=== PATIENT | female | born 1980 | race Caucasian/White ===

== ENCOUNTER 2016-05-23 17:49 | Inpatient (IN) ==
[2016-05-23] MEDS ORDERED: METOCLOPRAMIDE 10 MG/2 ML VIAL IV STA (18:59)
[2016-05-23] MEDS ORDERED: ONDANSETRON 4 MG/2 ML VIAL IV STA (18:59)
[2016-05-23] MEDS ORDERED: PANTOPRAZOLE 40 MG VIAL IV STA (18:59)
[2016-05-23] MEDS ORDERED: SODIUM CHLORIDE 0.9% 1,000 ML IV STA (18:59)
--- NOTE | 2016-05-23 19:05 | Emergency Department Note ---
Arrival - Arrival Chief Complaint: GI Bleed/Rectal Stated Complaint: NAUSEA/RECTAL BLEEDING/LOW GRADE FEVER ED Nursing Triage Note: C/O LOWER GI BLEED WITH ONSET THIS MORNING. + FEVER. PT STATES SHE HAS HAD 3 BM WITH BLOOD. Mode of Arrival: Ambulatory Limitations: No Limitations Source: Patient Time Seen by Provider: 05/23/16 18:59 - History of Present Illness HPI Narrative: This 35-year-old white female presents with 3 bouts of painless passage of red blood with clots. The patient denies any melena, vomiting, history of inflammatory bowel disease, reflux, peptic ulcer disease, or hemorrhoids. Patient does have a history of gastritis on endoscopy over a year ago and does complain of nausea in association with this. She has experienced no significant complaints the last several days leading up to the bouts experienced on this day. Currently she appears in no acute distress. Onset (ago): hour(s) (onset of symptoms 12 hours ago) Consistency: constant Severity: moderate Allergies/Adverse Reactions: Allergies Allergy/AdvReac Type Severity Reaction Status Date / Time levofloxacin [From Levaquin] Allergy RASH Verified 02/20/16 21:08 Home Medications: Home Medications Medication Instructions Recorded Confirmed Type No Known Home Medications [No 05/23/16 05/23/16 History Known Home Medications] Review of System - Review of System 12 point system: reviewed and no additional remarkable complaints except as stated - Review of System Constitutional: Present: as per HPI Gastrointestinal: Present: as per HPI Medical,Surgical,& Family Hx - Medical History Psychological: History of: Depression, Psychiatric Problems (ptsd) - Surgical History Abdominal Surgeries: Surgical HX of: Cholecystectomy Reproductive Surgeries: Surgical HX of;: Section (x2), Dilation and Curettage, Hysterectomy - Family History Family History: Reports;: Family Cancer, Family Diabetes, Family Hypertension - Social History Smoking Status: Never smoker Frequency of Alcohol Use: None Type of Drug Use: None Exam Physical Examination: GENERAL: Well developed, well nourished white female in no acute distress. HEENT: Normocephalic. No trauma. Moist mucous membranes. EOMI. PERRLA. NECK: Supple. No adenopathy. CARDIAC: Regular. No murmurs. Heart rate 83 CHEST: Clear to auscultation. No respiratory distress. O2 sat 100% ABDOMEN: Soft. Mild midepigastric tenderness. Active bowel sounds. EXTREMITIES: No trauma. Normal ROM. No pedal edema. SKIN: No diaphoresis. No rash. NEURO: Alert. Neurologic intact. No focal deficits. Vital Signs: Vital Signs Temperature 98.6 F 05/23/16 18:12 Pulse Rate 63 05/23/16 18:12 Respiratory Rate 18 05/23/16 18:12 Blood Pressure 131/91 05/23/16 18:12 O2 Sat by Pulse Oximetry 100 05/23/16 18:12 Course - Reevaluation(s) Reevaluation #1: Discussed with patient the need for hospitalization overnight with probability of endoscopy in the morning. - Consultations Consultation #1: Discussed with hospitalist service who will admit for further evaluation and treatment Results - Labs CBC & BMP: 05/23/16 18:20 05/23/16 18:20 Labs: I've noted the totally normal laboratory Disposition Clinical Impression: lower GI bleed Case discussed with: patient, patient's family Disposition: Still a Patient Condition: Stable Time of Disposition: 20:31
[2016-05-23 19:07] LABS: Basophils # 0.1 10*3/uL (0.0-0.2); Basophils % 0.9 % (0.0-0.8); Eosinophils # 0.3 10*3/uL (0.0-0.87); Eosinophils % 3.1 % (0.00-10.9); Hematocrit 46.4 VOL% (35.7-47.0); Hemoglobin 15.6 GM/DL (12.0-16.0); Immature Granulocytes % 0.4 %; Immature Granulocytes Absolute 0.04 #; Lymphocytes % 38.7 % (21.3-54.2); Mean Corpuscular HGB Conc 33.6 GM/DL (32-36); Mean Corpuscular Hemoglobin 29 PG (27-34); Mean Corpuscular Volume 87.1 FL (87-102); Mean Platelet Volume 10.6 FL (9.6-12.0); Monocytes # 0.6 10*3/uL (0.11-0.8); Monocytes % 5.7 % (1.7-12.7); Neutrophils # 5.3 10*3/uL (1.4-7.4); Neutrophils % 51.2 % (38.7-73.9); Platelet Count 243 10*3/uL (130-400); Red Blood Count 5.33 10*6/uL (3.8-5.5); Red Cell Distribution Width 12.6 % (9.3-17.3); White Blood Count 10.2 10*3/uL (4.5-13.71)
[2016-05-23 19:15] LABS: PT Patient Result 10.6 SECS; Partial Thromboplastin Time 28.9 SECS (0-40)
[2016-05-23] MEDS ORDERED: PANTOPRAZOLE 40 MG VIAL IV ONE (19:22)
[2016-05-23] MEDS ORDERED: ONDANSETRON 4 MG/2 ML VIAL ONE (19:23)
[2016-05-23] MEDS ORDERED: METOCLOPRAMIDE 10 MG/2 ML VIAL ONE (19:23)
[2016-05-23 19:34] LABS: Alanine Aminotransferase 45 U/L (13-56); Alkaline Phosphatase 111 U/L (45-117); Aspartate Amino Transferase 24 U/L (0-37); Blood Urea Nitrogen 13 MG/DL (7-18); Calcium 9.6 MG/DL (8.5-10.1); Glucose 76 MG/DL (74-106); Potassium 3.6 MMOL/L (3.5-5.1); Sodium 143 MMOL/L (136-145); Total Protein 7.5 G/DL (6.4-8.3); Troponin I Only < 0.015 NG/ML (0.00-0.045)
--- NOTE | 2016-05-23 20:54 | Hospitalist History & Physical ---
Assessment and Plan - Time spent with patient Time spent with patient: Greater than 30 minutes (1) Lower GI bleed Status: Acute Assessment and plan: We'll admit the patient to inpatient. Place her on nothing by mouth. Consult gastroenterology. Place the patient on PPI. Current Visit: Yes History of Present Illness Chief complaint: bright red blood per rectum History of present illness: Ms. Loyd is a 35 year old female who presents with complaints of bloody stool. She states she awakened at 545 am, which is normal for her and had a bowel movement. She noticed upon standing that the toilet was full of bright red blood. She endorses lower abdominal cramping. She had two more bowel movements thereafter each bloody and decided to present to the ER for evaluation. She endorses a temperature of 100F. She endorses nausea, no vomiting. Denies chest pain or SOB. Denies weight loss. Home Medications Medication Instructions Recorded Confirmed Type No Known Home Medications [No 05/23/16 05/23/16 History Known Home Medications] Allergies Allergy/AdvReac Type Severity Reaction Status Date / Time levofloxacin [From Levaquin] Allergy RASH Verified 02/20/16 21:08 Medical,Surgical,& Family Hx - Medical History Psychological: History of: Depression, Psychiatric Problems (ptsd) - Surgical History Abdominal Surgeries: Surgical HX of: Cholecystectomy Reproductive Surgeries: Surgical HX of;: Section (x2), Dilation and Curettage, Hysterectomy - Family History Family History: Reports;: Family Cancer, Family Diabetes, Family Hypertension - Social History Smoking Status: Never smoker Frequency of Alcohol Use: None Type of Drug Use: None 12 point system: reviewed and no additional remarkable complaints except as stated Exam - Constitutional Vitals: Period Temp Pulse Resp BP Sys/Anton Pulse Ox Last 24 Hr 98.6 F 63 18 131/91 100 General appearance: no acute distress - Head Head exam: Present: normocephalic, atraumatic - Eye Eye exam: Present: EOMI Pupils: Present: CLAIRE - ENT ENT exam: Present: normal exam - Neck Neck exam: Present: normal inspection - Respiratory Respiratory exam: Present: clear to auscultation bilaterally. Absent: rhonchi, wheezes - Cardiovascular Cardiovascular exam: Present: regular rate and rhythm. Absent: gallop, rubs, systolic murmur - GI/Abdominal GI/Abdominal exam: Present: normal bowel sounds, tenderness (lower left and right), soft. Absent: distended, firm, guarding, rebound - Extremities Exam Extremities exam: Present: normal inspection. Absent: calf tenderness, edema Results - Labs CBC & BMP: 05/23/16 18:20 05/23/16 18:20 Lab Results: I have reviewed the past 24 hour labs
--- NOTE | 2016-05-23 20:55 | EKG Report ---
Stationary ECG Study [facility] ER Test Date: 05/23/2016 8:54:20 PM Pat Name: JULY EDUARDO Department: Room: 516 Gender: F Marketing Designer: : 1980 Requested by: Reyes Molina Order Number: [id number] Reading MD: ELO ZUNIGA Intervals [place] Rate: 45 P: 46 SC: 179 QRS: 70 QRSD: 77 T: 13 QT: 418 QTc: 374 Interpretive Statements SINUS BRADYCARDIA NONSPECIFIC T-WAVE ABNORMALITY Electronically Signed On 05-24-16 12:33:53 SURGICAL TRAINING SPECIALIST by ELO ZUNIGA [email or web address]
[2016-05-23] MEDS: PANTOPRAZOLE 40 MG VIAL IV SCH (22:49)
[2016-05-24 06:30] LABS: Basophils # 0.1 10*3/uL (0.0-0.2); Basophils % 1.1 % (0.0-0.8); Eosinophils # 0.2 10*3/uL (0.0-0.87); Eosinophils % 2.9 % (0.00-10.9); Hematocrit 43.9 VOL% (35.7-47.0); Hemoglobin 14.5 GM/DL (12.0-16.0); Immature Granulocytes % 0.2 %; Immature Granulocytes Absolute 0.02 #; Lymphocytes # 3.7 10*3/uL (1.4-4.0); Lymphocytes % 45.6 % (21.3-54.2); Mean Corpuscular Hemoglobin 29 PG (27-34); Mean Corpuscular Volume 88.3 FL (87-102); Monocytes # 0.5 10*3/uL (0.11-0.8); Monocytes % 6.4 % (1.7-12.7); Neutrophils # 3.6 10*3/uL (1.4-7.4); Neutrophils % 43.8 % (38.7-73.9); Platelet Count 222 10*3/uL (130-400); Red Blood Count 4.97 10*6/uL (3.8-5.5); Red Cell Distribution Width 12.6 % (9.3-17.3); White Blood Count 8.1 10*3/uL (4.5-13.71)
[2016-05-24 06:53] LABS: Calcium 9.1 MG/DL (8.5-10.1); Osmolality,Calculated 287.6 MOS/KG (273-304); Potassium 4.5 MMOL/L (3.5-5.1)
--- NOTE | 2016-05-24 08:40 | Gastrointestinal Consult Note ---
Assessment and Plan (1) Lower GI bleed Status: Acute Assessment and plan: 05/24-Sudden onset of bright red rectal bleeding w/o stool x 3 episodes. Lower abd cramping. Low grade fever prior to admission. Recent endoscopy at [facility]. Obtain records from [facility]. Clear liquid diet. Continue to monitor HH. Plan and addendum to follow by DR Rios. Current Visit: Yes History of Present Illness Chief complaint: Lower GI bleed History of present illness: Ms. Loyd is a 35 year old female who presented to the ER following onset of lower GI bleeding. Pt states that she was in her usual state of health until yesterday morning when she was awaken about 5:45 with the urge to have a bowel movement. She went to the bathroom however she did not have a bowel movement but had some bright red rectal bleeding. She states she had some lower abdominal cramping prior to this but it would come and go, being sharp and severe at times. She had two more urgencies to have a bowel movement however only had bleeding with this with no stool. The pain continued off and on as well. She has not had any further bleeding since yesterday afternoon however she states getting out of the shower this morning she noticed bright red blood on the towel from her rectum. She does report a low grade temp of 100 prior to coming in. Denies any nausea or vomiting. Denies any clots. Denies any unwarranted weight loss. Denies any problems with her bowels or constipation issues. States that she did have an upper and lower endoscopy a year ago with Dr Chong however found out after it was her gallbladder which she had removed then. She states the only colon finding was a polyp. Mother is at bedside and reports she has IBS and her mother had colon cancer. Pt denies any NSAID use. States the week prior to this she just felt very fatigued and had some waves of nausea however was able to continue her usual activities. Hemoglobin is stable at 14. Other labs unremarkable at present time. Home Medications Medication Instructions Recorded Confirmed Type No Known Home Medications [No 05/23/16 05/23/16 History Known Home Medications] Allergies Allergy/AdvReac Type Severity Reaction Status Date / Time levofloxacin [From Levaquin] Allergy RASH Verified 02/20/16 21:08 Medical,Surgical,& Family Hx - Medical History Psychological: History of: Depression, Psychiatric Problems (ptsd) Gastrointestinal: History of: Polyps, GI Problems (gastritis) - Surgical History Abdominal Surgeries: Surgical HX of: Cholecystectomy Reproductive Surgeries: Surgical HX of;: Section (x2), Dilation and Curettage, Hysterectomy - Family History Family History: Reports;: Family Cancer, Family Diabetes, Family Hypertension - Social History Smoking Status: Never smoker Frequency of Alcohol Use: None Type of Drug Use: None 12 point system: reviewed and no additional remarkable complaints except as stated - Constitutional Constitutional: Present: as per HPI, fever(s) - EENT Eyes: Present: as per HPI Ears: Present: as per HPI Nose, mouth and throat: Present: as per HPI - Cardiovascular Cardiovascular: Present: as per HPI - Respiratory Respiratory: Present: as per HPI - Gastrointestinal Gastrointestinal: Present: as per HPI, abdominal pain, cramping, hematochezia - Genitourinary Genitourinary: Present: as per HPI - Musculoskeletal Musculoskeletal: Present: as per HPI - Neurological Neurological: Present: as per HPI - Psychiatric Psychiatric: Present: as per HPI - Endocrine Endocrine: Present: as per HPI - Hematologic/Lymphatic Hematologic/Lymphatic: Present: as per HPI Exam - Constitutional Vitals: Period Temp Pulse Resp BP Sys/Anton Pulse Ox Last 24 Hr 96.6 F-98.9 F 50-92 16-22 96-148/64-90 97-98 General appearance: normal weight, no acute distress - Head Head exam: Present: normal inspection, normocephalic - Eye Eye exam: Present: other (lids and conjunctiva unremarkable). Absent: scleral icterus - ENT ENT exam: Present: normal exam, normal oropharynx - Neck Neck exam: Present: normal inspection - Respiratory Respiratory exam: Present: clear to auscultation bilaterally. Absent: rales, rhonchi, wheezes - Cardiovascular Cardiovascular exam: Present: regular rate and rhythm. Absent: diastolic murmur , JVD, systolic murmur - GI/Abdominal GI/Abdominal exam: Present: normal bowel sounds, tenderness, soft. Absent: ascites, distended, mass, organomegaly - Extremities Exam Extremities exam: Present: normal inspection, full ROM - Back Exam Back exam: Present: normal inspection - Neurological Exam Neurological exam: Present: alert, oriented X3 - Psychiatric Psychiatric exam: Present: normal affect, normal mood - Skin Skin exam: Present: normal color, warm, dry Results - Labs CBC & BMP: 05/24/16 04:45 05/24/16 04:45 Lab Results: I have reviewed the past 24 hour labs Quality Measures - Stroke Symptom Onset Unknown: No
[2016-05-24] MEDS: PANTOPRAZOLE 40 MG VIAL IV SCH ×2 (09:57→20:11)
[2016-05-24] MEDS ORDERED: ONDANSETRON 4 MG/2 ML VIAL IV PRN ×2 (09:58→10:11)
[2016-05-24] MEDS ORDERED: ONDANSETRON 4 MG/2 ML VIAL ONE (09:59)
[2016-05-24] MEDS ORDERED: hydrOXYzine HCL 25 MG TABLET PO PRN (11:08)
[2016-05-24] MEDS ORDERED: PROMETHAZINE 25 MG/1 ML VIAL IM PRN (12:57)
--- NOTE | 2016-05-24 15:16 | Hospitalist Progress Note ---
Assessment and Plan (1) Lower GI bleed Status: Acute Assessment and plan: monitor hgb, may be ischemic colitis, colonoscopy one year ago found polyp Current Visit: Yes Hospitalist: Subjective Interval history: Dr. Rios feels that she may have an ischemic colitis but would not do antibiotics at this time. Her bleeding has stopped she still feels like she has itching and we will give her Atarax for itching Exam - Constitutional Vitals: Period Temp Pulse Resp BP Sys/Anton Pulse Ox Last 24 Hr 96.6 F-98.9 F 46-92 16-22 96-148/64-90 97-98 Exam: Heart Rate-regular rate and rhythm Lungs-[CTAB] GI-[+bs soft, NT] Ext-[no edema] neuro motor 5 out of 5, alert and oriented 3 Psych normal mood and affect General no acute distress Results - Labs CBC & BMP: 05/24/16 04:45 05/24/16 04:45 Lab Results: I have reviewed the past 24 hour labs Quality Measures - Stroke Symptom Onset Unknown: No
[2016-05-24] MEDS: SODIUM CHLORIDE 0.45% 1,000 ML IV SCH (16:13)
[2016-05-24] MEDS: ONDANSETRON 4 MG/2 ML VIAL IV PRN (16:39)
[2016-05-25] MEDS: SODIUM CHLORIDE 0.45% 1,000 ML IV SCH ×2 (01:10→07:41)
--- NOTE | 2016-05-25 08:32 | Gastrointestinal Progress Note ---
Assessment and Plan (1) Lower GI bleed Status: Acute Assessment and plan: 05/25-Small amt of rectal oozing last night. Hgb stable at 14. [facility] records review. Plan and addendum to follow by Dr Rios. 05/24-Sudden onset of bright red rectal bleeding w/o stool x 3 episodes. Lower abd cramping. Low grade fever prior to admission. Recent endoscopy at [facility]. Obtain records from [facility]. Clear liquid diet. Continue to monitor HH. Plan and addendum to follow by DR Rios. Current Visit: Yes Gastroenterology - PN: Subj Interval history: CC: Rectal bleed Pt is seen awake and alert, family at side. States she rested well overnight. She is complaining of some abdominal cramping this morning more than on yesterday. She had one small episode of rectal oozing bright red blood last night however has not had a bowel movement in a couple of days. Hgb is stable at 14. Records from [facility] indicate EGD with gastritis and negative H. pylori and C-scope with random biopsies taken with negative path reports, which were both done in February. She had some bleeding from the rectum at that time but the c- scope report does not indicate a source. Abdomen is soft, nontender to palpation. ROS: Denies SOB or chest pain Exam (Progress Note) - Constitutional Vitals: Period Temp Pulse Resp BP Sys/Anton Pulse Ox Last 24 Hr 96.6 F-98.3 F 46-62 16-18 92-112/52-67 96-100 - Other Additional findings: General appearance: normal weight, no acute distress - Head Head exam: Present: normal inspection, normocephalic - Eye Eye exam: Present: other (lids and conjunctiva unremarkable). Absent: scleral icterus - ENT ENT exam: Present: normal exam, normal oropharynx - Neck Neck exam: Present: normal inspection - Respiratory Respiratory exam: Present: clear to auscultation bilaterally. Absent: rales, rhonchi, wheezes - Cardiovascular Cardiovascular exam: Present: regular rate and rhythm. Absent: diastolic murmur , JVD, systolic murmur - GI/Abdominal GI/Abdominal exam: Present: normal bowel sounds, tenderness, soft. Absent: ascites, distended, mass, organomegaly - Extremities Exam Extremities exam: Present: normal inspection, full ROM - Back Exam Back exam: Present: normal inspection - Neurological Exam Neurological exam: Present: alert, oriented X3 - Psychiatric Psychiatric exam: Present: normal affect, normal mood - Skin Skin exam: Present: normal color, warm, dry Results - Labs CBC & BMP: 05/25/16 05:10 05/24/16 04:45 Lab Results: I have reviewed the past 24 hour labs
[2016-05-25] MEDS: PANTOPRAZOLE 40 MG VIAL IV SCH (09:02)
--- NOTE | 2016-05-25 10:53 | Discharge Summary ---
<Hayde Raines - Last Filed: 05/25/16 10:47> Hospital Course - Hospital Course Hospital Course: Ms Loyd was admitted on 05/23/16 with acute Lower GI Bleed. GI was consulted and she was placed on PPI. She was awakened the morning of discharge, and had a large amount of bright red blood. Lower abdominal cramping. Dr. Rios saw in GI consultation for her lower GI bleed and opted to treat symptomatically given that she had recently had a C scope about 3-4 months ago showing a small polyp. H/H's remained stable throughout her hospitalization. Ms. Loyd has improved, and she will be discharged home today on appropriate medications and follow up. - Time spent with patient Time with patient DS: Greater than 30 minutes (due to plan, doc and med rec.) Diagnosis - Discharge Diagnosis (1) Lower GI bleed Status: Acute Discharge Plan - Discharge Data Disposition: Disch To Home/Self Care - Discharge Medications New Promethazine Tab [Phenergan Tab] 25 mg PO Q4H #30 tablet HYDROcodone/ACETAMIN 5-325 [[place] 5-325] 1 tablet PO Q4H PRN #30 tablet PRN Reason: Pain Moderate (4-7) Pantoprazole Tab [Protonix Tab] 40 mg PO DAILY #30 tablet - Follow Up or Referral Follow Up: Chaparro Rios MD [Physician] - 1 Month (or GI doctor of choice ) - Forms/Instructions Exam - Constitutional Vitals: Period Temp Pulse Resp BP Sys/Anton Pulse Ox Last 24 Hr 96.6 F-98.3 F 46-62 16-18 92-112/52-67 96-100 Discharge Results Labs on day of discharge: Labs from last 24 hours 05/25/16 05:10 Hgb 14.3 DS: Provider Date of admission: 05/23/16 20:49 Primary care physician: . No PCP Attending physician on admission: Sravani Sarabia MD Discharging clinician: Hayde Raines NP Expected date of discharge: 05/25/16 <Dawn Rivero - Last Filed: 05/25/16 11:16> Hospital Course - Hospital Course Hospital Course: Patient seen and examined. Hospital course reviewed and edited. Spoke with Dr. Rios and he believes that she has a mild case of ischemic colitis. No antibiotics are needed at this time. Patient has mild cramping but is able to tolerate a soft diet. We will discharge her on nausea and pain medicines to follow-up with GI of her choice. Diagnosis - Discharge Diagnosis (1) Lower GI bleed Status: Acute Discharge Plan - Discharge Data Condition at Discharge: Stable Discharge Diet: other (soft ) Activity: resume usual activities as tolerated Hygiene: no restrictions Exam - Constitutional Exam: Heart Rate-[RRR] Lungs-[CTAB] GI-[+bs soft, NT] Ext-[no edema]
[2016-05-25] MEDS: ONDANSETRON 4 MG/2 ML VIAL IV PRN (12:30)
[2016-05-25 13:37] VITALS: BP 107/75
== END 2016-05-25 15:00 | disposition home or self-care (01) | DRG 395 ==
LOC: N.ED 17:49 → N.EDINP 20:44 → N.5E 21:49
PROVIDERS: ADMIT Internal Medicine; ATTEND Internal Medicine

== ENCOUNTER 2017-07-29 18:52 | Inpatient (IN) ==
[2017-07-29] MEDS ORDERED: metroNIDAZOLE INJ 500 MG in PREMIX 1 EACH IV STA (20:31)
[2017-07-29] MEDS ORDERED: ONDANSETRON 4 MG/2 ML VIAL IV STA (20:31)
[2017-07-29] MEDS ORDERED: SODIUM CHLORIDE 0.9% 500 ML IV STA (20:31)
[2017-07-29] MEDS ORDERED: PANTOPRAZOLE 40 MG VIAL IV STA (20:31)
[2017-07-29] MEDS ORDERED: METOCLOPRAMIDE 10 MG/2 ML VIAL IV STA (20:31)
[2017-07-29] MEDS ORDERED: ONDANSETRON 4 MG/2 ML VIAL ONE (20:49)
[2017-07-29] MEDS ORDERED: METOCLOPRAMIDE 10 MG/2 ML VIAL ONE (20:49)
[2017-07-29] MEDS ORDERED: metroNIDAZOLE 500 MG/100 ML PREMIX IV ONE (20:49)
[2017-07-29] MEDS ORDERED: PANTOPRAZOLE 40 MG VIAL IV ONE (20:49)
[2017-07-29 20:55] LABS: Basophils # 0.1 10*3/uL (0.0-0.2); Basophils % 0.6 % (0.0-0.8); Eosinophils # 0.3 10*3/uL (0.0-0.87); Eosinophils % 2.2 % (0.00-10.9); Hematocrit 48.5 VOL% (35.7-47.0); Hemoglobin 16.5 GM/DL (12.0-16.0); Immature Granulocytes % 0.3 %; Immature Granulocytes Absolute 0.04 #; Lymphocytes # 2.6 10*3/uL (1.4-4.0); Lymphocytes % 20.5 % (21.3-54.2); Mean Corpuscular Hemoglobin 30 PG (27-34); Mean Corpuscular Volume 87.2 FL (87-102); Mean Platelet Volume 9.7 FL (9.6-12.0); Monocytes # 0.6 10*3/uL (0.11-0.8); Monocytes % 4.9 % (1.7-12.7); Neutrophils % 71.5 % (38.7-73.9); Platelet Count 218 T/CUMM (130-400); Red Blood Count 5.56 MC/CUMM (3.8-5.5); Red Cell Distribution Width 13.5 % (9.3-17.3); White Blood Count 12.5 T/CUMM (4-12)
[2017-07-29 20:59] LABS: Apearance,Urine Slightly Hazy (Clear); Bilirubin,Urine Negative (Negative); Blood, Urine Negative (Negative); Glucose,Urine (UA) Negative (Negative); Ketones,Urine Negative (Negative); Mucus,Urine Occasional /LPF (Occasional); Nitrite,Urine Negative (Negative); Protein,Urine Negative; RBC,Urine 1 /HPF (0-4); Squamous Epithelial Cell,Urine Occasional /HPF (0-10); Urine Color Yellow (Yellow); Urine Specific Gravity 1.016 (1.001-1.035); Urine Urobilinogen < 2.0 EU/DL (0.2-1.0); WBC,Urine 4 /HPF (0-6)
[2017-07-29 21:32] LABS: Albumin 3.5 G/DL (3.4-5.0); Bilirubin,Total 0.6 MG/DL (0.2-1.0); Calcium 9.2 MG/DL (8.5-10.1); Osmolality,Calculated 278.4 MOS/KG (273-304); Potassium 3.6 MMOL/L (3.5-5.1); Total Protein 6.7 G/DL (6.4-8.3)
[2017-07-30] MEDS ORDERED: metroNIDAZOLE INJ 500 MG in PREMIX 1 EACH IV SCH ×2 (02:00→09:00)
[2017-07-30] MEDS ORDERED: cefTRIAXone 1,000 MG in SYRINGE 1 EACH IV SCH (02:00)
[2017-07-30] MEDS: SODIUM CHLORIDE 0.9% 1,000 ML IV SCH ×2 (03:00→15:05)
[2017-07-30] MEDS: MORPHINE 4 MG/1 ML VIAL IV PRN ×3 (03:04→17:49)
[2017-07-30] MEDS: ONDANSETRON 4 MG/2 ML VIAL IV PRN ×4 (03:08→20:52)
[2017-07-30 06:40] LABS: Basophils # 0.1 10*3/uL (0.0-0.2); Basophils % 0.5 % (0.0-0.8); Eosinophils # 0.3 10*3/uL (0.0-0.87); Eosinophils % 3.3 % (0.00-10.9); Hematocrit 43.3 VOL% (35.7-47.0); Hemoglobin 14.4 GM/DL (12.0-16.0); Immature Granulocytes % 0.4 %; Immature Granulocytes Absolute 0.04 #; Lymphocytes # 2.8 10*3/uL (1.4-4.0); Lymphocytes % 30.2 % (21.3-54.2); Mean Corpuscular HGB Conc 33.3 GM/DL (32-36); Mean Corpuscular Hemoglobin 30 PG (27-34); Mean Corpuscular Volume 88.9 FL (87-102); Mean Platelet Volume 9.8 FL (9.6-12.0); Monocytes # 0.6 10*3/uL (0.11-0.8); Neutrophils # 5.3 10*3/uL (1.4-7.4); Neutrophils % 58.6 % (38.7-73.9); Platelet Count 201 T/CUMM (130-400); Red Blood Count 4.87 MC/CUMM (3.8-5.5); Red Cell Distribution Width 13.5 % (9.3-17.3); White Blood Count 9.1 T/CUMM (4-12)
[2017-07-30 06:50] LABS: INR 0.9; Partial Thromboplastin Time 27.1 SECS (0-40)
[2017-07-30 07:09] LABS: Calcium 8.8 MG/DL (8.5-10.1); Osmolality,Calculated 279.3 MOS/KG (273-304); Potassium 4.2 MMOL/L (3.5-5.1)
[2017-07-30] MEDS: PANTOPRAZOLE 40 MG VIAL IV SCH (08:10)
[2017-07-30] MEDS: diphenhydrAMINE CAP 25 MG CAPSULE PO PRN ×2 (10:58→20:51)
[2017-07-30] MEDS: MEROPENEM 500 MG in SYRINGE 1 EACH IV SCH (11:01)
[2017-07-31] MEDS: MEROPENEM 500 MG in SYRINGE 1 EACH IV SCH ×3 (00:31→23:03)
[2017-07-31] MEDS: SODIUM CHLORIDE 0.9% 1,000 ML IV SCH ×3 (02:29→22:57)
[2017-07-31 06:52] LABS: Basophils % 0.6 % (0.0-0.8); Eosinophils # 0.3 10*3/uL (0.0-0.87); Eosinophils % 4.5 % (0.00-10.9); Hematocrit 42.6 VOL% (35.7-47.0); Hemoglobin 14.1 GM/DL (12.0-16.0); Immature Granulocytes % 0.3 %; Immature Granulocytes Absolute 0.02 #; Lymphocytes # 2.3 10*3/uL (1.4-4.0); Lymphocytes % 33.4 % (21.3-54.2); Mean Corpuscular HGB Conc 33.1 GM/DL (32-36); Mean Corpuscular Hemoglobin 30 PG (27-34); Mean Corpuscular Volume 89.5 FL (87-102); Mean Platelet Volume 10.2 FL (9.6-12.0); Monocytes # 0.5 10*3/uL (0.11-0.8); Monocytes % 7.8 % (1.7-12.7); Neutrophils # 3.7 10*3/uL (1.4-7.4); Neutrophils % 53.4 % (38.7-73.9); Platelet Count 199 T/CUMM (130-400); Red Blood Count 4.76 MC/CUMM (3.8-5.5); Red Cell Distribution Width 13.3 % (9.3-17.3); White Blood Count 6.9 T/CUMM (4-12)
[2017-07-31 07:10] LABS: Calcium 8.5 MG/DL (8.5-10.1); Osmolality,Calculated 276.3 MOS/KG (273-304); Potassium 3.9 MMOL/L (3.5-5.1)
[2017-07-31] MEDS: PANTOPRAZOLE 40 MG VIAL IV SCH (08:30)
[2017-07-31] MEDS: ONDANSETRON 4 MG/2 ML VIAL IV PRN ×2 (08:30→22:14)
[2017-07-31] MEDS: MORPHINE 4 MG/1 ML VIAL IV PRN ×3 (08:31→22:10)
[2017-07-31] MEDS: diphenhydrAMINE CAP 25 MG CAPSULE PO PRN (09:19)
[2017-08-01 05:15] LABS: Basophils # 0.1 10*3/uL (0.0-0.2); Basophils % 0.6 % (0.0-0.8); Eosinophils # 0.4 10*3/uL (0.0-0.87); Eosinophils % 5.2 % (0.00-10.9); Hematocrit 41.7 VOL% (35.7-47.0); Immature Granulocytes % 0.3 %; Immature Granulocytes Absolute 0.02 #; Lymphocytes # 2.9 10*3/uL (1.4-4.0); Lymphocytes % 36.2 % (21.3-54.2); Mean Corpuscular HGB Conc 33.6 GM/DL (32-36); Mean Corpuscular Hemoglobin 30 PG (27-34); Mean Corpuscular Volume 88.3 FL (87-102); Monocytes # 0.5 10*3/uL (0.11-0.8); Monocytes % 6.3 % (1.7-12.7); Neutrophils # 4.1 10*3/uL (1.4-7.4); Neutrophils % 51.4 % (38.7-73.9); Platelet Count 216 T/CUMM (130-400); Red Blood Count 4.72 MC/CUMM (3.8-5.5); White Blood Count 7.9 T/CUMM (4-12)
[2017-08-01 05:46] LABS: Albumin 2.9 G/DL (3.4-5.0); Bilirubin,Total 0.8 MG/DL (0.2-1.0); Calcium 8.7 MG/DL (8.5-10.1); Osmolality,Calculated 274.5 MOS/KG (273-304); Total Protein 5.5 G/DL (6.4-8.3)
[2017-08-01] MEDS: MORPHINE 4 MG/1 ML VIAL IV PRN ×3 (08:56→22:57)
[2017-08-01] MEDS: SODIUM CHLORIDE 0.9% 1,000 ML IV SCH ×2 (08:56→17:51)
[2017-08-01] MEDS: PANTOPRAZOLE 40 MG VIAL IV SCH (09:22)
[2017-08-01] MEDS ORDERED: PROPOFOL 200 MG/20 ML VIAL IV ONE (13:40)
[2017-08-01] MEDS ORDERED: ONDANSETRON 4 MG/2 ML VIAL ONE (13:40)
[2017-08-01] MEDS ORDERED: LIDOCAINE 2% 5 ML VIAL ONE (13:40)
[2017-08-01] MEDS: TRIAMCINOLONE 0.1% CREAM 15 GM TUBE TOP SCH ×2 (14:52→20:30)
[2017-08-01] MEDS: VANCOMYCIN INJ 1,250 MG in SODIUM CHLORIDE 0.9% 250 ML IV SCH ×2 (14:52→22:12)
[2017-08-01] MEDS: ONDANSETRON 4 MG/2 ML VIAL IV PRN (17:50)
[2017-08-02] MEDS: VANCOMYCIN INJ 1,250 MG in SODIUM CHLORIDE 0.9% 250 ML IV SCH (04:59)
[2017-08-02 07:21] LABS: Basophils # 0.1 10*3/uL (0.0-0.2); Basophils % 0.7 % (0.0-0.8); Eosinophils # 0.4 10*3/uL (0.0-0.87); Eosinophils % 5.2 % (0.00-10.9); Hematocrit 42.5 VOL% (35.7-47.0); Hemoglobin 14.6 GM/DL (12.0-16.0); Immature Granulocytes % 0.3 %; Immature Granulocytes Absolute 0.02 #; Lymphocytes # 2.5 10*3/uL (1.4-4.0); Mean Corpuscular HGB Conc 34.4 GM/DL (32-36); Mean Corpuscular Hemoglobin 30 PG (27-34); Monocytes # 0.5 10*3/uL (0.11-0.8); Monocytes % 6.4 % (1.7-12.7); Neutrophils # 4.2 10*3/uL (1.4-7.4); Neutrophils % 54.4 % (38.7-73.9); Platelet Count 237 T/CUMM (130-400); Red Blood Count 4.94 MC/CUMM (3.8-5.5); Red Cell Distribution Width 13.2 % (9.3-17.3); White Blood Count 7.7 T/CUMM (4-12)
[2017-08-02 07:53] LABS: Bilirubin,Total 0.8 MG/DL (0.2-1.0); Calcium 8.7 MG/DL (8.5-10.1); Osmolality,Calculated 280.3 MOS/KG (273-304); Potassium 4.3 MMOL/L (3.5-5.1); Total Protein 5.6 G/DL (6.4-8.3)
[2017-08-02] MEDS: PANTOPRAZOLE 40 MG VIAL IV SCH (09:12)
[2017-08-02] MEDS: TRIAMCINOLONE 0.1% CREAM 15 GM TUBE TOP SCH ×3 (09:13→20:06)
[2017-08-02] MEDS: oxyCODONE/ACETAMINOPHEN 5-325 MG TABLET PO PRN ×2 (10:09→16:47)
[2017-08-02 11:12] LABS: Apearance,Urine CLEAR (Clear); Bacteria,Urine Occasional /HPF (Few); Bilirubin,Urine Negative (Negative); Blood, Urine Negative (Negative); Glucose,Urine (UA) Negative (Negative); Ketones,Urine Negative (Negative); Mucus,Urine Occasional /LPF (Occasional); Nitrite,Urine Negative (Negative); Protein,Urine Negative; RBC,Urine 1 /HPF (0-4); Squamous Epithelial Cell,Urine Occasional /HPF (0-10); Urine Color Yellow (Yellow); Urine Specific Gravity 1.011 (1.001-1.035); Urine Urobilinogen < 2.0 EU/DL (0.2-1.0); WBC,Urine 1 /HPF (0-6)
[2017-08-02] MEDS: SODIUM CHLORIDE 0.9% 1,000 ML IV SCH ×2 (12:28→20:07)
[2017-08-02] MEDS ORDERED: AZTREONAM 1,000 MG in SYRINGE 1 EACH IV SCH (16:00)
[2017-08-02] MEDS ORDERED: ENOXAPARIN 40 MG/0.4 ML SYRINGE SUBCUT SCH (16:00)
[2017-08-02] MEDS: ONDANSETRON 4 MG/2 ML VIAL IV PRN (20:05)
[2017-08-02] MEDS: PANTOPRAZOLE 40 MG TABLET PO SCH (20:06)
[2017-08-03] MEDS: SODIUM CHLORIDE 0.9% 1,000 ML IV SCH (05:52)
[2017-08-03] MEDS: ONDANSETRON 4 MG/2 ML VIAL IV PRN (08:10)
[2017-08-03] MEDS: TRIAMCINOLONE 0.1% CREAM 15 GM TUBE TOP SCH (08:11)
[2017-08-03] MEDS: PANTOPRAZOLE 40 MG TABLET PO SCH (08:11)
[2017-08-03 11:57] VITALS: BP 127/84
[2017-08-03] MEDS ORDERED: VANCOMYCIN INJ 1,250 MG in SODIUM CHLORIDE 0.9% 250 ML IV SCH (14:00)
== END 2017-08-03 13:18 | disposition home or self-care (01) | DRG 378 ==
LOC: N.ED 18:52 → N.EDINP 18:52 → N.5E 07-30 02:30 → SUATTDRO 08-01 11:23
PROVIDERS: ADMIT Internal Medicine; ATTEND Internal Medicine

== ENCOUNTER 2019-03-27 17:59 | Observation (INO) ==
[2019-03-27] MEDS ORDERED: PIPERACILLIN/TAZOBACTAM 3,375 MG in SODIUM CHLORIDE 0.9% 100 ML IV STA (18:46)
[2019-03-27] MEDS ORDERED: DIPH/TET/ACEL PERT BOOSTER VACCINE 0.5 ML VIAL IM ONE ×2 (18:47→19:00)
[2019-03-27] MEDS ORDERED: PIPERACILLIN/TAZOBACTAM 3,375 MG VIAL IV ONE (19:02)
[2019-03-27] MEDS ORDERED: RABIES VIRUS VACCINE 1 ML/2.5 UNIT KIT IM ONE (19:10)
[2019-03-27] MEDS ORDERED: TETANUS IMMUNE GLOBULIN 250 UNIT SYRINGE IM STA (19:23)
[2019-03-27 19:27] LABS: Basophils # 0.1 10*3/uL (0.0-0.2); Basophils % 0.6 % (0.0-0.8); Eosinophils # 0.3 10*3/uL (0.0-0.87); Hematocrit 45.7 VOL% (35.7-47.0); Hemoglobin 15.5 GM/DL (12.0-16.0); Immature Granulocytes % 0.6 %; Immature Granulocytes Absolute 0.08 #; Lymphocytes # 3.3 10*3/uL (1.4-4.0); Lymphocytes % 24.8 % (21.3-54.2); Mean Corpuscular HGB Conc 33.9 GM/DL (32-36); Mean Corpuscular Volume 88.7 FL (87-102); Mean Platelet Volume 10.4 FL (9.6-12.0); Monocytes % 4.9 % (1.7-12.7); Neutrophils % 67.1 % (38.7-73.9); Platelet Count 236 T/CUMM (130-400); Red Blood Count 5.15 MC/CUMM (3.8-5.5); Red Cell Distribution Width 12.4 % (9.3-17.3); White Blood Count 13.2 T/CUMM (4-12)
[2019-03-27] MEDS ORDERED: MORPHINE 4 MG/1 ML VIAL IV STA (19:40)
[2019-03-27 19:43] LABS: Calcium 9.3 MG/DL (8.5-10.1); Osmolality,Calculated 271.8 MOS/KG (273-304)
[2019-03-27] MEDS ORDERED: ACETAMINOPHEN 325 MG TABLET PO PRN (21:12)
[2019-03-27 21:45] LABS: Sedimentation Rate-Westergren 5 MM/HR (0-20)
[2019-03-27] MEDS ORDERED: RABIES IMMUNE GLOBULIN 300 UNIT/2 ML VIAL IM STA (21:47)
[2019-03-28] MEDS: HYDROmorphone 2 MG/1 ML VIAL IV PRN ×3 (00:03→18:00)
[2019-03-28] MEDS: ENOXAPARIN 40 MG/0.4 ML SYRINGE SUBCUT SCH ×2 (00:26→21:31)
[2019-03-28] MEDS: ONDANSETRON 4 MG/2 ML VIAL IV PRN ×5 (03:54→22:47)
[2019-03-28] MEDS: PIPERACILLIN/TAZOBACTAM 3,375 MG in SODIUM CHLORIDE 0.9% 100 ML IV SCH ×3 (04:07→23:37)
[2019-03-28] MEDS: PANTOPRAZOLE 40 MG TABLET PO SCH (08:53)
[2019-03-28 10:16] LABS: Basophils # 0.1 10*3/uL (0.0-0.2); Basophils % 0.5 % (0.0-0.8); Eosinophils # 0.2 10*3/uL (0.0-0.87); Eosinophils % 1.2 % (0.00-10.9); Hematocrit 44.8 VOL% (35.7-47.0); Hemoglobin 15.2 GM/DL (12.0-16.0); Immature Granulocytes % 0.5 %; Immature Granulocytes Absolute 0.07 #; Lymphocytes # 2.2 10*3/uL (1.4-4.0); Lymphocytes % 14.2 % (21.3-54.2); Mean Corpuscular HGB Conc 33.9 GM/DL (32-36); Mean Corpuscular Volume 88.9 FL (87-102); Mean Platelet Volume 10.3 FL (9.6-12.0); Monocytes % 5.8 % (1.7-12.7); Neutrophils % 77.8 % (38.7-73.9); Platelet Count 206 T/CUMM (130-400); Red Blood Count 5.04 MC/CUMM (3.8-5.5); Red Cell Distribution Width 12.3 % (9.3-17.3); White Blood Count 15.2 T/CUMM (4-12)
[2019-03-28] MEDS: SULFAMETHOX/TRIMETHOPRIM 800-160 MG TABLET PO SCH ×2 (12:57→21:31)
[2019-03-28 17:07] LABS: Apearance,Urine CLEAR (Clear); Bacteria,Urine Occasional /HPF (Few); Bilirubin,Urine Negative (Negative); Blood, Urine Negative (Negative); Glucose,Urine (UA) Negative (Negative); Ketones,Urine Negative (Negative); Nitrite,Urine Negative (Negative); Protein,Urine Negative; RBC,Urine 2 /HPF (0-4); Squamous Epithelial Cell,Urine Occasional /HPF (0-10); Urine Color Yellow (Yellow); Urine Specific Gravity 1.027 (1.001-1.035); Urine Urobilinogen < 2.0 EU/DL (0.2-1.0); WBC,Urine 3 /HPF (0-6)
[2019-03-29 05:11] LABS: Basophils # 0.1 10*3/uL (0.0-0.2); Basophils % 0.6 % (0.0-0.8); Eosinophils # 0.2 10*3/uL (0.0-0.87); Eosinophils % 2.4 % (0.00-10.9); Hematocrit 43.3 VOL% (35.7-47.0); Hemoglobin 14.7 GM/DL (12.0-16.0); Immature Granulocytes % 0.4 %; Immature Granulocytes Absolute 0.04 #; Lymphocytes # 2.2 10*3/uL (1.4-4.0); Lymphocytes % 23.4 % (21.3-54.2); Mean Corpuscular HGB Conc 33.9 GM/DL (32-36); Mean Corpuscular Volume 88.7 FL (87-102); Mean Platelet Volume 10.5 FL (9.6-12.0); Monocytes % 6.5 % (1.7-12.7); Neutrophils % 66.7 % (38.7-73.9); Platelet Count 189 T/CUMM (130-400); Red Blood Count 4.88 MC/CUMM (3.8-5.5); Red Cell Distribution Width 12.3 % (9.3-17.3); White Blood Count 9.6 T/CUMM (4-12)
[2019-03-29 05:30] LABS: Calcium 8.7 MG/DL (8.5-10.1); Osmolality,Calculated 278.4 MOS/KG (273-304)
[2019-03-29] MEDS: PIPERACILLIN/TAZOBACTAM 3,375 MG in SODIUM CHLORIDE 0.9% 100 ML IV SCH ×2 (06:57→12:29)
[2019-03-29] MEDS: PANTOPRAZOLE 40 MG TABLET PO SCH (08:17)
[2019-03-29] MEDS: SULFAMETHOX/TRIMETHOPRIM 800-160 MG TABLET PO SCH (08:17)
[2019-03-29] MEDS: ONDANSETRON 4 MG/2 ML VIAL IV PRN (09:30)
[2019-03-29] MEDS: HYDROmorphone 2 MG/1 ML VIAL IV PRN (09:30)
[2019-03-29 12:52] VITALS: BP 148/92
== END 2019-03-29 15:50 | disposition home or self-care (01) ==
LOC: N.ED 17:59 → N.EDINP 17:59 → N.2W 22:28
PROVIDERS: ADMIT Internal Medicine; ATTEND Internal Medicine